=== PATIENT | female | born 1945 | race Caucasian/White ===

== ENCOUNTER 2025-11-09 17:23 | Inpatient (IN) | payer MEDICARE ==
[~2025-11-09] VITALS: Ht 152.4 cm; Wt 49.9 kg
[2025-11-09] MEDS ORDERED: insulin glargine SQ (18:10)
[2025-11-09] MEDS ORDERED: SITA100T PO (18:10)
[2025-11-09] MEDS ORDERED: PANT40TA49 PO (18:10)
[2025-11-09] MEDS ORDERED: METF-442 PO (18:10)
[2025-11-09] MEDS ORDERED: CLOP75TA15 PO (18:10)
[2025-11-09] MEDS ORDERED: ATOR80TA PO (18:10)
[2025-11-09] MEDS ORDERED: LISI20TA30 PO (18:10)
[2025-11-09] MEDS ORDERED: LORA-259 PO (18:10)
[2025-11-09 18:12] LABS: PLATELET COUNT (AUTO) 189 K/uL (150-450); RED BLOOD CELL COUNT(AUTO) 4.39 MIL/uL (4.0-5.2); RED CELL DISTRIBUTION WIDTH 17.2 % (11.5-15.0); WHITE BLOOD COUNT (AUTO) 12.5 K/uL (4.3-11.0)
[2025-11-09 18:19] LABS: CALCIUM, SERUM 8.9 mg/dL (8.5-10.1); CREATININE 1.2 mg/dL (0.6-1.3); SODIUM SERUM 137 mmol/L (136-145); UREA NITROGEN, BLOOD 34 mg/dL (7-18)
[2025-11-09 18:23] LABS: SERUM AMMONIA 20 umol/L (11-32)
[2025-11-09 18:26] LABS: ASPARTATE AMINOTRANSFERASE 26 U/L (15-37); TOTAL PROTEIN, SERUM 7.0 g/dL (6.4-8.2)
[2025-11-09 18:27] LABS: ALCOHOL, BLOOD < 3 mg/dL (0-10)
[2025-11-09 18:33] LABS: LACTIC ACID 2.2 mmol/L (0.4-2.0)
[2025-11-09] MEDS ORDERED: ONDANSETRON HCL/PF 4 MG/2 ML VIAL ONE (18:43)
[2025-11-09 18:47] LABS: LDL 83 mg/dL (0-99)
[2025-11-09] MEDS: ONDANSETRON HCL/PF - ER 4 MG/2 ML VIAL IV ONE (18:51)
[2025-11-09 19:20] LABS: APPEARANCE,URINE CLOUDY (CLEAR); BLOOD, URINE 1+ Ery/uL (NEGATIVE); LEUKOCYTE ESTERASE ,URINE 2+ (NEGATIVE); NITRITE, URINE POSITIVE (NEGATIVE); UGLUCOSE 3+ mg/dL (NEGATIVE)
[2025-11-09 19:23] LABS: AMPHETAMINE, URINE NEGATIVE (NEGATIVE); BARBITURATE, URINE NEGATIVE (NEGATIVE); BENZODIAZEPINE, URINE NEGATIVE (NEGATIVE); CANNABINOID, URINE NEGATIVE (NEGATIVE); COCCAINE, URINE NEGATIVE (NEGATIVE)
[2025-11-09 19:24] LABS: OPIATE, URINE POSITIVE (NEGATIVE)
[2025-11-09 19:25] LABS: ADD URINE CULTURE YES
[2025-11-09 19:28] LABS: HYALINE CASTS, URINE Few /LPF (None Seen); URINE AMORPHOUS URATE Moderate /HPF (None Seen)
[2025-11-09] MEDS: CEFTRIAXONE 1GM BAG (ER ONLY) 1 GM/50 ML PIGGYBACK IV ONE (19:43)
[2025-11-09 20:00] VITALS: BP 155/60; TEMP 97.3; O2SAT 100
[2025-11-09] MEDS ORDERED: ONDANSETRON HCL/PF 4 MG/2 ML VIAL IVP PRN (20:30)
[2025-11-09] MEDS ORDERED: ACETAMINOPHEN 325 MG TABLET PO PRN (20:30)
[2025-11-09] MEDS ORDERED: Z GUARD REMEDY 4 OZ OINT TP PRN (20:30)
[2025-11-09] MEDS ORDERED: DEXTROSE 50%-WATER 50 ML DISP.SYRIN IV PRN (20:30)
[2025-11-09] MEDS ORDERED: ACETAMINOPHEN 650 MG/SUPP.RECT RC PRN (20:30)
[2025-11-09] MEDS: IV D5/0.45 NACL 1,000 ML IV PRN (22:34)
[2025-11-09] MEDS: ENOXAPARIN SODIUM 30 MG/0.3 ML DISP.SYRIN SQ SCH (23:21)
[2025-11-10] MEDS: BLOOD SUGAR DIAGNOSTIC 1 EACH STRIP IN SCH (00:39)
[2025-11-10 01:08] LABS: LACTIC ACID REFLEX 2.9 mmol/L (0.4-1.9)
[2025-11-10 04:00] VITALS: BP 120/56; TEMP 98.2; O2SAT 100
[2025-11-10] MEDS: INSULIN REGULAR, HUMAN 100 UNIT/ML 3 ML VIAL SQ PRN (06:21)
[2025-11-10 06:54] LABS: PLATELET COUNT (AUTO) 181 K/uL (150-450); RED BLOOD CELL COUNT(AUTO) 4.04 MIL/uL (4.0-5.2); RED CELL DISTRIBUTION WIDTH 16.8 % (11.5-15.0); WHITE BLOOD COUNT (AUTO) 17.6 K/uL (4.3-11.0)
[2025-11-10 07:14] LABS: CALCIUM, SERUM 8.4 mg/dL (8.5-10.1); CREATININE 1.4 mg/dL (0.6-1.3); PHOSPHORUS 6.0 mg/dL (2.5-4.9); SODIUM SERUM 138.0 mmol/L (136-145); UREA NITROGEN, BLOOD 43.0 mg/dL (7-18)
[2025-11-10 08:00] VITALS: BP 104/49; TEMP 98.3; O2SAT 97
[2025-11-10] MEDS: PANTOPRAZOLE 40 MG VIAL IV SCH (08:59)
[2025-11-10] MEDS: THERAHONEY GEL 1.5 OZ TUBE TP SCH (11:02)
[2025-11-10 12:26] VITALS: TEMP 98.5
[2025-11-10 16:00] VITALS: BP 140/41; TEMP 97.9; O2SAT 96
[2025-11-10 17:20] VITALS: O2SAT 92
[2025-11-10] MEDS: IV NS 0.9% 500 ML IV ONE (18:49)
[2025-11-10 20:00] VITALS: BP 113/99; TEMP 99; O2SAT 98
[2025-11-10] MEDS: CEFTRIAXONE 1 G in IV D5W 50 ML IV SCH (20:11)
[2025-11-10 20:55] LABS: CREATININE, URINE 264.9 MG/DL (30.0-125.0); URINE SODIUM, RANDOM 37.0 mmol/l (40-220); URINE TOTAL PROTEIN 113.7 mg/dL (0-11.9)
[2025-11-11 04:00] VITALS: BP 158/69; TEMP 99; O2SAT 96
[2025-11-11 07:18] LABS: PLATELET COUNT (AUTO) 172 K/uL (150-450); RED BLOOD CELL COUNT(AUTO) 4.23 MIL/uL (4.0-5.2); RED CELL DISTRIBUTION WIDTH 16.7 % (11.5-15.0); WHITE BLOOD COUNT (AUTO) 12.8 K/uL (4.3-11.0)
[2025-11-11 07:42] LABS: ASPARTATE AMINOTRANSFERASE 31.0 U/L (15-37); CALCIUM, SERUM 8.7 mg/dL (8.5-10.1); CREATININE 0.7 mg/dL (0.6-1.3); PHOSPHORUS 2.9 mg/dL (2.5-4.9); SODIUM SERUM 137.0 mmol/L (136-145); TOTAL PROTEIN, SERUM 6.9 g/dL (6.4-8.2); UREA NITROGEN, BLOOD 32.0 mg/dL (7-18)
[2025-11-11 08:00] VITALS: BP 150/85; TEMP 98.6; O2SAT 96
[2025-11-11 08:44] LABS: CREATINE KINASE, TOTAL 276.0 U/L (26-192)
[2025-11-11 11:34] LABS: LDL 67 mg/dL (0-99)
[2025-11-11 16:00] VITALS: BP 150/63; TEMP 98.6; O2SAT 96
[2025-11-11 20:00] VITALS: BP 155/67; TEMP 98.5; O2SAT 100
[2025-11-12 04:00] VITALS: BP 158/72; TEMP 98.5; O2SAT 100
[2025-11-12 06:58] LABS: PLATELET COUNT (AUTO) 183 K/uL (150-450); RED BLOOD CELL COUNT(AUTO) 4.26 MIL/uL (4.0-5.2); RED CELL DISTRIBUTION WIDTH 15.7 % (11.5-15.0); WHITE BLOOD COUNT (AUTO) 13.3 K/uL (4.3-11.0)
[2025-11-12 07:22] LABS: CALCIUM, SERUM 8.7 mg/dL (8.5-10.1); CREATININE 0.6 mg/dL (0.6-1.3); SODIUM SERUM 135.0 mmol/L (136-145); UREA NITROGEN, BLOOD 15.0 mg/dL (7-18)
[2025-11-12 08:00] VITALS: BP 187/87; TEMP 98.6; O2SAT 100
[2025-11-12] MEDS: CLONIDINE HCL 0.1 MG TABLET PO PRN (08:11)
[2025-11-12] MEDS: PANTOPRAZOLE 40 MG/PACK PACK PO SCH (08:11)
[2025-11-12 16:00] VITALS: BP 102/54; TEMP 98.6; O2SAT 96
[2025-11-12 20:00] VITALS: BP 114/73; TEMP 98.1; O2SAT 98
[2025-11-13 04:00] VITALS: BP 103/58; TEMP 98.2; O2SAT 97
[2025-11-13 08:00] VITALS: BP 149/78; TEMP 98.1; O2SAT 96
[2025-11-13] MEDS ORDERED: NITR100C6 PO (09:42)
[2025-11-14 02:07] LABS: PTH, INTACT 8 pg/mL (15-65)
[2025-11-14 13:10] LABS: *SPE A/G RATIO 1.0 (0.7-1.7); *SPE ALBUMIN 3.1 g/dL (2.9-4.4); *SPE ALPHA-1-GLOBULIN 0.3 g/dL (0.0-0.4); *SPE ALPHA-2-GLOBULIN 1.1 g/dL (0.4-1.0); *SPE BETA GLOBULIN 0.9 g/dL (0.7-1.3); *SPE GLOBULIN, TOTAL 3.1 g/dL (2.2-3.9); *SPE M-SPIKE Not Observed g/dL (Not Observed); *SPE PROTEIN TOTAL 6.2 g/dL (6.0-8.5); *SPEGAMMA GLOBULIN 0.8 g/dL (0.4-1.8)
== END 2025-11-13 14:33 | DRG 871 ==
LOC: ER 17:25 → TELE1 20:05 → MEDSG1 20:27
PROVIDERS: ADMIT Nurse Practitioner Acute Care; ATTEND Internal Medicine
DX: A41.9 Sepsis, unspecified organism (principal); G92.8 Other toxic encephalopathy; E87.20 Acidosis, unspecified; D68.59 Other primary thrombophilia; I69.354 Hemiplegia and hemiparesis following cerebral infarction affecting left non-dominant side; E87.1 Hypo-osmolality and hyponatremia; E86.0 Dehydration; I48.0 Paroxysmal atrial fibrillation; N39.0 Urinary tract infection, site not specified; R65.20 Severe sepsis without septic shock; Z79.02 Long term (current) use of antithrombotics/antiplatelets; B96.89 Other specified bacterial agents as the cause of diseases classified elsewhere; B95.2 Enterococcus as the cause of diseases classified elsewhere; E11.9 Type 2 diabetes mellitus without complications; E03.9 Hypothyroidism, unspecified; I10 Essential (primary) hypertension; F01.50 Vascular dementia, unspecified severity, without behavioral disturbance, psychotic disturbance, mood disturbance, and anxiety; Z95.5 Presence of coronary angioplasty implant and graft; M89.8X9 Other specified disorders of bone, unspecified site; I25.10 Atherosclerotic heart disease of native coronary artery without angina pectoris; Z79.84 Long term (current) use of oral hypoglycemic drugs; Z79.899 Other long term (current) drug therapy; Z74.09 Other reduced mobility; E78.5 Hyperlipidemia, unspecified; Z66 Do not resuscitate; G31.9 Degenerative disease of nervous system, unspecified
CPT/HCPCS: 36415; 70450-TC; 71045-TC; 76770-TC; 80048-TC; 80053-TC; 80061-TC; 81001; 82140-TC; 82248-TC; 82550-TC; 82553; 82570-TC; 82962-TC; 83605-TC; 83735-TC; 83970; 84100-TC; 84155; 84165; 84300-TC; 84443-TC; 84484-TC; 85025-TC; 85730-TC; 87040-TC; 87081-TC; 87086-TC; 92526; 92611; 97110-TC; 97530-TC; 97535-TC; A4223; A6254; G0378; G0480; J0696; J1650; J1815; J2405; J2470; J3490; J7040; J7050; J7060